=== PATIENT | female | born 1955 | race Caucasian/White ===

== ENCOUNTER → 2017-08-16 | Outpatient (CLI) | payer OTHER ==
--- NOTE | 2017-08-16 18:00 | CT ---
EXAMINATION TYPE: CT brain wo/w con DATE OF EXAM: 08/16/2017 COMPARISON: NONE HISTORY: Patient having left eye crossing and pulsating CT DLP: 2065.94 mGycm Automated exposure control for dose reduction was used. CONTRAST: CT scan of the head is performed with IV Contrast, patient injected with 100-same injection as for or bits mL of Omnipaque 300. FINDINGS: Ventricles have normal size. 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 There is mild left-sided proptosis. I do not see a discrete mass. There is no pathologic enhancem ent. There is also absence of some of the lateral aspect of the bony orbit. I do not see a retro-orbi hipolito mass. 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 There is a 7 mm area of hypodensity in the left anterior internal capsule. 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 I do not see a destructive mass. There is left-sided propto sis. 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
--- NOTE | 2017-08-16 18:31 | CT ---
EXAMINATION TYPE: CT orbits wo/w con DATE OF EXAM: 08/16/2017 COMPARISON: NONE HISTORY: Patient having left eye crossing and pulsating CT DLP: 882.78 mGycm Automated exposure control for dose reduction was used. CONTRAST: Performed with IV Contrast, patient injected with 100 mL of Omnipaque 300. 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 The floor of the left middle cr anial fossa is an abnormally low position with thinning of the bone. The lateral bony orbital wall sh ows partial absence and there is anterior displacement of the wall with CSF fluid. There is as a resu lt abnormal anterior position of the left globe. There is a medial displacement of the lateral rectus muscle. The globes are symmetric. I do not see an actual retro-orbital mass. There is however mass e ffect upon the extraocular lateral rectus muscle due to the Mal position of the lateral orbital wall. I see no focal bony destructive process. I think this appearance is related to hypoplastic or aplast ic orbital wall. There is no pathologic enhancement. There is some widening of the subdural space ant erior to the left temporal lobe in the anterior left middle cranial fossa. The left middle cerebral a rtery appears normal. I see no pathologic enhancement. There is normal appearance of the maxillary sinuses. 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 I SEE NO DESTRUCTIVE LESION. THERE IS A RESULT DEPRESSION OF THE FLOOR OF THE LEFT MIDDLE CRANIAL FOSSA AND ANTERIOR ABNORMAL POSITION OF TH E LATERAL WALL OF THE LEFT ORBIT. THERE IS LEFT-SIDED PROPTOSIS. THERE IS MEDIAL DISPLACEMENT OF LATE RAL RECTUS MUSCLE AND ANTERIOR ISDISPLACEMENT THE RIGHT ORBIT APPEARS NORMAL. OF THE LEFT GLOBE.
== END | disposition home or self-care (01) ==
LOC: RADCTMAIN 16:54
PROVIDERS: ATTEND Ophthalmology
DX: Q79.9 Congenital malformation of musculoskeletal system, unspecified (principal); H05.20 Unspecified exophthalmos; H53.2 Diplopia
CPT/HCPCS: 70470; 70482; Q9967

== ENCOUNTER → 2017-11-04 | Outpatient (CLI) | payer OTHER ==
--- NOTE | 2017-11-08 07:11 | MM ---
Reason for exam: additional evaluation requested from abnormal screening. Last mammogram was performed 1 month ago. History: Patient is postmenopausal and is nulliparous. Physical Findings: Nurse did not find any significant physical abnormalities on exam. MG 3D Work Up W/Cad ROSHNI Bilateral LM view(s) were taken. Spot compression CC and spot compression MLO view(s) were taken of the right breast. CC with magnification and LM with magnification view(s) were taken of the left breast. Prior study comparison: October 18, 2017, bilateral MG 3d screening mammo w/cad. Finding: There are intermediate concern, suspicious dominant, heterogeneous, round, grouped/clustered calcifications in the anterior, central position of the left breast and several smaller grouped calcifications in the left breast. Right lesion persists. These results were verbally communicated with the patient and result sheet given to the patient on 11/04/17. ASSESSMENT: Suspicious, BI-RAD 4 RECOMMENDATION: Stereotactic core biopsy of the left breast. Called Dr. Shirley with mammographic findings and has scheduled an appointment for the patient for 11/10/16 at 11:[address] Moody. PRELIMINARY REPORT CALLED AND FAXED TO DR. MOOYD ON 11/08/16.
== END | disposition home or self-care (01) ==
LOC: RADMAMWWP 13:43
PROVIDERS: ATTEND Family Medicine
DX: R92.8 Other abnormal and inconclusive findings on diagnostic imaging of breast (principal)
CPT/HCPCS: G0204; G0279

== ENCOUNTER → 2017-11-25 | Day surgery (SDC) | payer OTHER ==
[2017-11-25 09:54] VITALS: RESP 12
[2017-11-25 11:25] VITALS: BP 124/78; PULSE 71; TEMP 98.4
--- NOTE | 2017-11-29 09:36 | MM ---
EXAMINATION TYPE: MG stereo VAD BX LT DATE OF EXAM: 11/25/2017 COMPARISON: Mammogram 11/04/2017 CLINICAL HISTORY: Abnormal mammogram TECHNIQUE: Stereotactic guided core biopsy of left breast. FINDINGS: Maximal barrier technique was utilized. The skin overlying a suitable path to the abnormal calcifications was localized with mammographic stereotactic unit and the overlying skin prepped. Lidocaine used for local anesthesia. A vacuum assisted biopsy gun was used to obtain multiple core samples. The patient tolerated the procedure well without any immediate complication. The patient was kept in the radiology department for short stay after the procedure and then discharged home in stable condition. Targeted calcifications are identified in specimen mammogram. Post biopsy digital mammogram shows the clip to appear in satisfactory position relative to the targeted area of concern on the preprocedure images. IMPRESSION: SUCCESSFUL, UNCOMPLICATED STEREOTACTIC GUIDED CORE BIOPSY OF AREA OF CONCERN IN THE left BREAST, FULL PATHOLOGY RESULTS TO FOLLOW. This procedure performed by the undersigned. Pathology Results: Benign BREAST, LEFT, STEREOTACTIC CORE BIOPSY: BREAST WITH PROMINENT FIBROADIPOSE TISSUE DEMONSTRATING FAT NECROSIS, FOCAL FIBROSIS AND CALCIFICATIONS. BACKGROUND BREAST PARENCHYMA DEMONSTRATES FIBROCYSTIC CHANGE (STROMAL FIBROSIS, CYST FORMATION, APOCRINE METAPLASIA AND MILD DUCT HYPERPLASIA). PENDING X-RAY OF SPECIMEN BLOCKS TO CONFIRM ALL AREAS OF CALCIFICATION HAVE BEEN IDENTIFIED. THE RESULTS WILL BE ISSUED IN AN ADDENDUM REPORT. ADDENDUM REPORT BREAST, LEFT, STEREOTACTIC CORE BIOPSY: BREAST WITH PROMINENT FIBROADIPOSE TISSUE DEMONSTRATING FAT NECROSIS, FOCAL FIBROSIS AND CALCIFICATIONS. BACKGROUND BREAST PARENCHYMA DEMONSTRATES FIBROCYSTIC CHANGES (STROMAL FIBROSIS , CYST FORMATION, APOCRINE METAPLASIA AND FOCAL DUCT HYPERPLASIA). Recommendation Follow up mammogram of both breasts in 6 months. MAX
== END ==
LOC: RADMAMWWP 09:14
PROVIDERS: ATTEND Surgery
DX: N64.1 Fat necrosis of breast (principal); N60.32 Fibrosclerosis of left breast; R92.1 Mammographic calcification found on diagnostic imaging of breast; N60.02 Solitary cyst of left breast; N60.82 Other benign mammary dysplasias of left breast; N60.92 Unspecified benign mammary dysplasia of left breast
CPT/HCPCS: 88305; 19081; A4648; J2001

== ENCOUNTER → 2018-05-31 | Outpatient (CLI) | payer OTHER ==
--- NOTE | 2018-05-31 14:09 | MM ---
Reason for exam: follow-up at short interval from prior study. Last mammogram was performed 7 months ago. History: Patient is postmenopausal and is nulliparous. Benign MG stereo VAD BX LT of the left breast, November 25, 2017. Took hormonal contraceptives beginning at age 26. Physical Findings: Nurse did not find any significant physical abnormalities on exam. MG 3D Diag Mammo W/Cad LT CC, MLO, and ML view(s) were taken of the left breast. Prior study comparison: November 04, 2017, bilateral MG 3d work up w/cad ROSHNI. October 18, 2017, bilateral MG 3d screening mammo w/cad. Finding: There are regional fine calcifications in the left breast. Previous mammotome biopsy in the left breast. No significant changes in finding since November 04, 2017 and October 18, 2017. These results were verbally communicated with the patient and result sheet given to the patient on 05/31/18. ASSESSMENT: Benign, BI-RAD 2 RECOMMENDATION: Return to routine screening mammogram schedule for both breasts.
== END | disposition home or self-care (01) ==
LOC: RADMAMWWP 12:07
PROVIDERS: ATTEND Surgery
DX: R92.8 Other abnormal and inconclusive findings on diagnostic imaging of breast (principal)
CPT/HCPCS: 77061; 77065

== ENCOUNTER → 2019-06-01 | Outpatient (CLI) | payer OTHER ==
--- NOTE | 2019-06-05 13:12 | MM ---
Reason for exam: screening (asymptomatic). Last mammogram was performed 1 year ago. History: Patient is postmenopausal and is nulliparous. Benign MG stereo VAD BX LT of the left breast, November 25, 2017. Took hormonal contraceptives beginning at age 26. MG 3D Screening Mammo W/Cad Bilateral CC and MLO view(s) were taken. Prior study comparison: May 31, 2018, left breast MG 3d diag mammo w/cad LT. November 04, 2017, bilateral MG 3d work up w/cad ROSHNI. There are scattered fibroglandular densities. Bilateral chronic nodularity. No significant new finding when compared with prior studies. ASSESSMENT: Benign, BI-RAD 2 RECOMMENDATION: Routine screening mammogram of both breasts in 1 year.
== END | disposition home or self-care (01) ==
LOC: RADMAMWWP 10:26
PROVIDERS: ATTEND Family Medicine
DX: Z12.31 Encounter for screening mammogram for malignant neoplasm of breast (principal)
CPT/HCPCS: 77063; 77067

== ENCOUNTER → 2020-06-06 | Outpatient (CLI) | payer OTHER ==
--- NOTE | 2020-06-09 10:36 | MM ---
Reason for exam: screening (asymptomatic). Last mammogram was performed 1 year ago. History: Patient is postmenopausal and is nulliparous. Benign MG stereo VAD BX LT of the left breast, November 25, 2017. Took hormonal contraceptives beginning at age 26. Physical Findings: A clinical breast exam by your physician is recommended on an annual basis and results should be correlated with mammographic findings. MG 3D Screening Mammo W/Cad Bilateral CC and MLO view(s) were taken. XCCL view(s) were taken of the left breast. Prior study comparison: June 01, 2019, bilateral MG 3d screening mammo w/cad. May 31, 2018, left breast MG 3d diag mammo w/cad LT. There are scattered fibroglandular densities. Stable scattered calcifications. There is no discrete abnormality. No significant changes when compared with prior studies. ASSESSMENT: Benign, BI-RAD 2 RECOMMENDATION: Routine screening mammogram of both breasts in 1 year.
== END | disposition home or self-care (01) ==
LOC: RADMAMWWP 10:52
PROVIDERS: ATTEND Family Medicine
DX: Z12.31 Encounter for screening mammogram for malignant neoplasm of breast (principal)
CPT/HCPCS: 77063; 77067

== ENCOUNTER → 2021-06-25 | Outpatient (CLI) | payer MEDICARE, OTHER ==
[~2021-06-25] MED LIST: REGADENOSON 0.4 MG/5 ML SYRINGE IV PRN
--- NOTE | 2021-06-25 11:19 | NM ---
EXAMINATION TYPE: NM stress lexiscan cardiolite DATE OF EXAM: 06/25/2021 COMPARISON: NONE HISTORY: Chest pain TECHNIQUE: After the intravenous administration of 9.62 mCi Tc 99m Sestamibi - Cardiolite resting SP ECT images acquired 45 minutes post injection. The patient received 0.4mg Lexiscan, 24.3 mCi Tc 99m Sestamibi - Stress images obtained [address] injection FINDINGS: Review of stress and rest SPECT images demonstrates no distinct perfusion abnormality. Gated analysi s shows normal wall motion with an estimated left ventricular ejection fraction of 75 %. IMPRESSION: No scintigraphic evidence for reversible ischemia.
--- NOTE | 2021-06-25 11:22 | P.STRESS ---
- Stress Test Note Stress Test Results/Findings: Exam Performed: NM stress lexiscan cardiolite Exam Date: 06/25/21 Reason for Exam: Abnormal EKG Height: 5 ft Weight: 56.699 kg Protocol: Lexiscan Stage: na Duration of Exercise: na Resting Heart Rate: 61 Resting Blood Pressure: 158/80 Maximum Achieved Heart Rate: 86 Maximum Achieved Blood Pressure: 168/93 85% PMHR: 132 100% PMHR: 155 METS: na Technologist Comment: Stress Test Results/Findings: This is a 66-year-old female with history of hypertension, hypercholesterolemia, smoking history, being evaluated for cardiac status because of abnormal EKG Stress data: Baseline EKG showed sinus rhythm with normal CO and QRS duration. Blood pressure at rest is 158/80. Pulse rate of 61. A standard dose of Lexiscan was infused. EKGs taken during and after infusion did not reveal any significant changes from baseline. Patient did not express any chest pain. No arrhythmias noted. Final impression: #1. Negative Lexiscan stress test #2. Report on the nuclear images to be given by the radiologist
--- NOTE | 2021-06-26 10:48 | EST ---
Stress Test Results/Findings: Exam Performed: NM stress lexiscan cardiolite Exam Date: 06/25/21 Reason for Exam: Abnormal EKG Height: 5 ft Weight: 56.699 kg Protocol: Lexiscan Stage: na Duration of Exercise: na Resting Heart Rate: 61 Resting Blood Pressure: 158/80 Maximum Achieved Heart Rate: 86 Maximum Achieved Blood Pressure: 168/93 85% PMHR: 132 100% PMHR: 155 METS: na Technologist Comment: Stress Test Results/Findings: This is a 66-year-old female with history of hypertension, hypercholesterolemia, smoking history, being evaluated for cardiac status because of abnormal EKG Stress data: Baseline EKG showed sinus rhythm with normal DC and QRS duration. Blood pressure at rest is 158/80. Pulse rate of 61. A standard dose of Lexiscan was infused. EKGs taken during and after infusion did not reveal any significant changes from baseline. Patient did not express any chest pain. No arrhythmias noted. Final impression: #1. Negative Lexiscan stress test #2. Report on the nuclear images to be given by the radiologist MAX
== END | disposition home or self-care (01) ==
LOC: RADNMMAIN 07:40
PROVIDERS: ATTEND Nurse Practitioner Family
DX: R94.31 Abnormal electrocardiogram [ECG] [EKG] (principal)
CPT/HCPCS: 93017; 78452; A9500; J2785

== ENCOUNTER → 2021-07-07 | Outpatient (CLI) | payer MEDICARE, OTHER ==
--- NOTE | 2021-07-09 10:06 | MM ---
Reason for exam: screening (asymptomatic). Last mammogram was performed 1 year and 1 month ago. History: Patient is postmenopausal and is nulliparous. Benign MG stereo VAD BX LT of the left breast, November 25, 2017. Took hormonal contraceptives beginning at age 26. Physical Findings: A clinical breast exam by your physician is recommended on an annual basis and results should be correlated with mammographic findings. MG 3D Screening Mammo W/Cad Bilateral CC and MLO view(s) were taken. XCCL view(s) were taken of the right breast. Prior study comparison: June 06, 2020, bilateral MG 3d screening mammo w/cad. Finding: There are typically benign round, diffuse/scattered calcifications in both breasts. Previous mammotome biopsy in the left breast. No significant changes in finding since June 06, 2020. ASSESSMENT: Benign, BI-RAD 2 RECOMMENDATION: Routine screening mammogram of both breasts in 1 year.
== END | disposition home or self-care (01) ==
LOC: RADMAMWWP 12:47
PROVIDERS: ATTEND Family Medicine
DX: Z12.31 Encounter for screening mammogram for malignant neoplasm of breast (principal)
CPT/HCPCS: 77063; 77067

== ENCOUNTER → 2022-01-05 | Outpatient (CLI) | payer MEDICARE, OTHER ==
[2022-01-05 14:38] LABS: HCT 45.4 % (37.2-46.3); HGB 14.9 g/dL (12.0-15.0); MCH 28.4 pg (27.0-32.0); MCHC 32.8 g/dL (32.0-37.0); MCV 86.5 fL (80.0-97.0); Mean Platelet Volume 11.2 fL (9.5-12.2); NRBC Per 100 WBC 0 /100 WBCS (0.0-0.0); Platelet Count 251 X 10*3/uL (140-440); RBC 5.25 X 10*6/uL (4.10-5.20); RDW 13.4 % (11.5-14.5); WBC 9.49 X 10*3/uL (4.50-10.00)
[2022-01-05 16:51] LABS: ALT 16 U/L (8-44); AST 18 U/L (13-35); Albumin 4.1 g/dL (3.8-4.9); Albumin/Globulin Ratio 2.02 (1.60-3.17); Alkaline Phosphatase 74 U/L (41-126); BUN/Creat Ratio 25.47 Ratio (12.00-20.00); Blood Urea Nitrogen 17.5 mg/dL (9.0-27.0); Chloride 102 mmol/L (96-109); Chol/HDL Ratio 4.19 Ratio; Glucose 86 mg/dL (70-110); LDL Cholesterol,Calculated 89.3 mg/dL (0.0-131.0); Non-African American GFR(CKD) 91.5 (60.0-200.0); Potassium 4.5 mmol/L (3.5-5.5); Sodium 138 mmol/L (135-145); Total Protein 6.2 g/dL (6.2-8.2)
== END | disposition home or self-care (01) ==
LOC: LABWHC1 09:38
PROVIDERS: ATTEND Nurse Practitioner Family
DX: I10 Essential (primary) hypertension (principal); G62.9 Polyneuropathy, unspecified; E78.5 Hyperlipidemia, unspecified; E55.9 Vitamin D deficiency, unspecified
CPT/HCPCS: 36415; 80053; 80061; 82306; 84443; 85027

== ENCOUNTER → 2022-06-11 | Outpatient (CLI) | payer MEDICARE, OTHER ==
[2022-06-11 18:25] LABS: Basophils # (A) 0.07 X 10*3/uL (0.00-0.10); Basophils % (A) 0.9 %; Eosinophils # (A) 0.13 X 10*3/uL (0.04-0.35); Eosinophils % (A) 1.7 %; HCT 49.9 % (37.2-46.3); HGB 16.3 g/dL (12.0-15.0); Immature Grans, Automated 0.5 %; Lymphocytes # (A) 1.42 X 10*3/uL (0.90-5.00); Lymphocytes % (A) 19.1 %; MCH 28.8 pg (27.0-32.0); MCHC 32.7 g/dL (32.0-37.0); MCV 88.3 fL (80.0-97.0); Mean Platelet Volume 11.5 fL (9.5-12.2); Monocytes # (A) 0.46 X 10*3/uL (0.20-1.00); Monocytes % (A) 6.2 %; NRBC Per 100 WBC 0 /100 WBCS (0.0-0.0); Neutrophils # (A) 5.31 X 10*3/uL (1.80-7.70); Neutrophils % (A) 71.6 %; Platelet Count 253 X 10*3/uL (140-440); RBC 5.65 X 10*6/uL (4.10-5.20); RDW 13.6 % (11.5-14.5); WBC 7.43 X 10*3/uL (4.50-10.00)
[2022-06-11 18:52] LABS: ALT 14 U/L (8-44); AST 25 U/L (13-35); Albumin 4.3 g/dL (3.8-4.9); Albumin/Globulin Ratio 1.54 (1.60-3.17); Alkaline Phosphatase 77 U/L (41-126); Calcium 9.3 mg/dL (8.7-10.3); Carbon Dioxide 21.3 mmol/L (20.0-27.5); Chloride 109 mmol/L (96-109); Chol/HDL Ratio 4.14 Ratio; Globulin 2.8 g/dL (1.6-3.3); Glucose 98 mg/dL (70-110); LDL Cholesterol,Calculated 113.7 mg/dL (0.0-131.0); Non-African American GFR(CKD) 76.8 (60.0-200.0); Potassium 4.8 mmol/L (3.5-5.5); Sodium 141 mmol/L (135-145); Total Protein 7.1 g/dL (6.2-8.2)
== END | disposition home or self-care (01) ==
LOC: LABWHC1 10:23
PROVIDERS: ATTEND Family Medicine
DX: I10 Essential (primary) hypertension (principal); E55.9 Vitamin D deficiency, unspecified; E78.5 Hyperlipidemia, unspecified; R73.01 Impaired fasting glucose
CPT/HCPCS: 36415; 80053; 80061; 82306; 83036; 84443; 85025

== ENCOUNTER → 2022-08-17 | Outpatient (CLI) | payer MEDICARE, OTHER ==
--- NOTE | 2022-08-18 20:04 | MM ---
Reason for Exam: Screening (asymptomatic). Last mammogram was performed 1 year(s) and 2 month(s) ago. Patient History: Menarche at age 13. Patient has no children. Postmenopausal. Hormonal Contraceptives, from age 26 until age 34. 11/25/2017, Benign Core Biopsy on the left side. Risk Values: Adriana 5 year model risk: 2.2%. NCI Lifetime model risk: 7.9%. Prior Study Comparison: 06/01/2019 Bilateral Screening Mammogram, [facility]. 06/06/2020 Bilateral Screening Mammogram, [facility]. 07/07/2021 Bilateral Screening Mammogram, [facility]. Tissue Density: There are scattered fibroglandular densities. Findings: Analyzed By CAD. Prominent nodularity on both sides. Benign punctate regional calcifications lateral left breast is unchanged. No significant change from prior exams. Overall Assessment: Benign, BI-RAD 2 Management: Screening Mammogram of both breasts in 1 year. 1. Patient should continue monthly self breast exams. 2. A clinical breast exam by your physician is recommended on an annual basis. 3. This exam should not preclude additional follow-up of suspicious palpable abnormalities. Electronically signed and approved by: Shanita Edouard M.D. Radiologist
== END | disposition home or self-care (01) ==
LOC: RADMAMWWP 12:52
PROVIDERS: ATTEND Family Medicine
DX: Z12.31 Encounter for screening mammogram for malignant neoplasm of breast (principal)
CPT/HCPCS: 77063; 77067

== ENCOUNTER → 2022-11-09 | Outpatient (CLI) | payer MEDICARE, OTHER ==
[2022-11-09 14:28] LABS: HCT 46.1 % (37.2-46.3); HGB 14.7 g/dL (12.0-15.0); MCH 27.8 pg (27.0-32.0); MCHC 31.9 g/dL (32.0-37.0); MCV 87.1 fL (80.0-97.0); Mean Platelet Volume 10.8 fL (9.5-12.2); NRBC Per 100 WBC 0 /100 WBCS (0.0-0.0); Platelet Count 282 X 10*3/uL (140-440); RBC 5.29 X 10*6/uL (4.10-5.20); RDW 13.3 % (11.5-14.5); WBC 9.86 X 10*3/uL (4.50-10.00)
[2022-11-09 16:08] LABS: ALT 15 U/L (8-44); AST 19 U/L (13-35); African American GFR (CKD) 85.4 (60.0-200.0); Albumin 4.1 g/dL (3.8-4.9); Albumin/Globulin Ratio 1.78 (1.60-3.17); Alkaline Phosphatase 96 U/L (41-126); Blood Urea Nitrogen 20.2 mg/dL (9.0-27.0); Calcium 9.5 mg/dL (8.7-10.3); Carbon Dioxide 23.3 mmol/L (20.0-27.5); Chloride 101 mmol/L (96-109); Chol/HDL Ratio 4.05 Ratio; Globulin 2.3 g/dL (1.6-3.3); Glucose 93 mg/dL (70-110); LDL Cholesterol,Calculated 104.8 mg/dL (0.0-131.0); Non-African American GFR(CKD) 73.7 (60.0-200.0); Potassium 4.6 mmol/L (3.5-5.5); Sodium 136 mmol/L (135-145); Total Protein 6.3 g/dL (6.2-8.2)
== END | disposition home or self-care (01) ==
LOC: LABWHC1 10:53
PROVIDERS: ATTEND Nurse Practitioner Family
DX: I10 Essential (primary) hypertension (principal); E78.5 Hyperlipidemia, unspecified; E55.9 Vitamin D deficiency, unspecified; R73.01 Impaired fasting glucose
CPT/HCPCS: 36415; 80053; 80061; 82306; 83036; 84443; 85027

== ENCOUNTER → 2023-06-08 | Outpatient (CLI) | payer MEDICARE, OTHER ==
[2023-06-08 11:52] LABS: HCT 50.5 % (37.2-46.3); HGB 16.5 d/dL (12.0-15.0); MCH 28.9 pg (27.0-32.0); MCHC 32.7 d/dL (32.0-37.0); MCV 88.6 FL (80.0-97.0); Mean Platelet Volume 11.8 FL (9.5-12.2); NRBC Per 100 WBC 0 X 10*3/uL (0.00-0.01); Platelet Count 190 X 10*3/uL (140-440); RDW 14.4 % (11.5-14.5); WBC 9.43 X 10*3/uL (4.50-10.00)
[2023-06-08 12:15] LABS: ALT 15 U/L (8-44); AST 21 U/L (13-35); Albumin 4.3 d/dL (3.8-4.9); Albumin/Globulin Ratio 1.79 Ratio (1.60-3.17); Alkaline Phosphatase 91 U/L (41-126); Blood Urea Nitrogen 22.8 mg/dL (9.0-27.0); Calcium 9.6 mg/dL (8.7-10.3); Carbon Dioxide 27.4 mmol/L (21.6-31.8); Chloride 104 mmol/L (96-109); Chol/HDL Ratio 3.75 Ratio; Globulin 2.4 d/dL (1.6-3.3); Glucose 99 mg/dL (70-110); LDL Cholesterol,Calculated 75.2 mg/dL (0.0-131.0); Potassium 4.8 mmol/L (3.5-5.5); Sodium 141 mmol/L (135-145); Total Bilirubin 0.3 mg/dL (0.3-1.2); Total Protein 6.7 d/dL (6.2-8.2)
== END | disposition home or self-care (01) ==
LOC: LABWHC1 09:34
PROVIDERS: ATTEND Family Medicine
DX: Z00.00 Encounter for general adult medical examination without abnormal findings (principal)
CPT/HCPCS: 36415; 80053; 80061; 83036; 84443; 85027